=== PATIENT | male | born 1990 | race Caucasian/White ===

== ENCOUNTER 2017-11-12 16:04 | Emergency (ER) | payer OTHER ==
--- NOTE | 2017-11-12 18:15 | ED ---
Substance Abuse/Use - HPI Summary HPI Summary: This patient is a 27 year old M presenting to [facility] accompanied by his girlfriend with a concern for etoh withdrawal. Pt states he is a former alcoholic and was sober for 4 months. 4 days ago the patients girlfriend left town and he relapsed, and has been drinking since. He states that every time he attempts to detox he has a seizure and his last drink was 2 hours ago. Pt had a cholecystectomy a few months ago. The patient rates the pain 8/10 in severity. - History Of Current Complaint Chief Complaint: EDDetoxRequest Stated Complaint: DETOX/SI Hx Obtained From: Patient Onset/Duration of Drug/ETOH Abuse: Days Ingestion History: Type/Name Of Drug - etoh Overdose Characteristics: Oral Timing Of Abuse: Recent Cessation For A Period Of Severity Initially: Moderate Severity Currently: Moderate Associated Signs And Symptoms: Negative - fever - Allergies/Home Medications Allergies/Adverse Reactions: Allergies Allergy/AdvReac Type Severity Reaction Status Date / Time No Known Allergies Allergy Verified 11/12/17 18:04 PMH/Surg Hx/FS Hx/Imm Hx Cardiovascular History: Denies: Hx Congenital Heart Disease, Hx Deep Vein Thrombosis, Hx Embolism, Hx Hypotension Respiratory History: Denies: Hx Chronic Obstructive Pulmonary Disease (COPD), Hx Lung Cancer, Hx Pneumonia, Hx Pulmonary Edema Psychiatric History: Reports: Hx Substance Abuse Infectious Disease History: No Infectious Disease History: Denies: Traveled Outside the US in Last 30 Days - Family History Known Family History: Positive: Diabetes Negative: Respiratory Disease, Seizure Disorder - Social History Occupation: Employed Full-time Alcohol Use: Daily Substance Use Type: Reports: None Hx Tobacco Use: Yes Smoking Status (MU): Heavy Every Day Tobacco Smoker Review of Systems Negative: Fever Positive: Other - etoh abuse All Other Systems Reviewed And Are Negative: Yes Physical Exam - Summary Physical Exam Summary: Appearance: Well-appearing, Well-nourished, lying in bed comfortable Skin: Warm, dry, no obvious rash Eyes: sclera anicteric, no conjunctival pallor ENT: mucous membranes moist Neck: deferred Respiratory: No signs of respiratory distress Cardiovascular: Appears well perfused, pulses are nml Abdomen: deferred Musculoskeletal: Moving all 4 extremities without obvious discomfort Neurological: Awake and alert, mentation is normal, speech is fluent and appropriate Psychiatric: affect is normal, does not appear anxious or depressed Triage Information Reviewed: Yes Vital Signs On Initial Exam: Initial Vitals Temp Pulse Resp BP Pulse Ox 98.3 F 80 15 137/74 98 11/12/17 16:21 11/12/17 16:21 11/12/17 16:21 11/12/17 16:21 11/12/17 16:21 Vital Signs Reviewed: Yes Diagnostics - Vital Signs Vital Signs Temp Pulse Resp BP Pulse Ox 11/12/17 16:21 98.3 F 80 15 137/74 98 - Laboratory Result Diagrams: 11/12/17 17:56 11/12/17 17:56 Lab Statement: Any lab studies that have been ordered have been reviewed, and results considered in the medical decision making process. Course/Dx - Course Course Of Treatment: This is a 27-year-old alcoholic male presenting with relapse of his alcoholism after several months of sobriety. He is mainly concerned with the possibility for alcohol withdrawal seizures which he has had before. Certainly this point he is intoxicated with a very high blood alcohol level and is not at particular risk for seizures at present. However given his history it seemed prudent to prescribe a short course of Librium as a seizure prophylaxis over the next few days. He says generally the seizures if they are going to happen happen in the first couple of days after stopping drinking. - Diagnoses Provider Diagnoses: Alcohol intoxication, History of seizures Discharge - Sign-Out/Discharge Documenting (check all that apply): Patient Departure - Discharge Plan Condition: Good Disposition: HOME Prescriptions: chlordiazePOXIDE CAP* [Librium CAP*] 50 mg PO BID #12 cap MDD 100 mg Patient Education Materials: Abuse of Alcohol (ED) Referrals: [facility] [Outside] [facility] [Outside] - Billing Disposition and Condition Condition: GOOD Disposition: Home - Attestation Statements Document Initiated by Scribe: Yes Documenting Scribe: Biju Angeles Provider For Whom Douglas is Documenting (Include Credential): Yovanny Mullen MD Scribe Attestation: Biju Donald scribed for Yovanny Mullen MD on 11/13/17 at 1037. Scribe Documentation Reviewed: Yes Provider Attestation: The documentation as recorded by the Biju wyman accurately reflects the service I personally performed and the decisions made by me, Yovanny Mullen MD
[2017-11-12 18:17] LABS: ABS Basophils 0 10^3/ul (0-0.2); ABS Eosinophils 0.2 10^3/ul (0-0.6); ABS Lymphocytes 2.7 10^3/ul (1.0-4.8); ABS Monocytes 0.3 10^3/ul (0-0.8); ABS Neutrophils 1.7 10^3/ul (1.5-7.7); ABS Nucleated RBC 0 10^3/ul; Eosinophil % 3.2 % (0-6); Hematocrit 44 % (42-52); Hemoglobin 15.4 g/dl (14.0-18.0); Lymphocyte % 56.2 % (25-47); Mean Corpuscular HGB Conc 35 g/dl (31-36); Mean Corpuscular Hemoglobin 31 pg (27-31); Mean Corpuscular Volume 88 fL (80-94); Nucleated Red Blood Cells % 0.2; Platelet Count 283 10^3/ul (150-450); Red Blood Count 4.98 10^6/ul (4.00-5.40); Red Cell Distribution Width 13 % (10.5-15); White Blood Count 4.9 10^3/ul (3.5-10.8)
[2017-11-12] MEDS ORDERED: Nicotine PATCH 21 MG/24 HR* PATCH TRANSDERM ONE (18:26)
[2017-11-12 19:13] VITALS: BP 126/77
== END 2017-11-12 19:13 | disposition home or self-care (01) ==
LOC: ED 16:04
DX: F10.229 Alcohol dependence with intoxication, unspecified (principal); F17.200 Nicotine dependence, unspecified, uncomplicated; G40.909 Epilepsy, unspecified, not intractable, without status epilepticus
CPT/HCPCS: 36415; 80053; 80307; 80320; 85025; 99282; A9270-GY; G0480

== ENCOUNTER 2017-11-13 15:58 | Emergency (ER) | payer OTHER ==
[2017-11-13 16:56] VITALS: BP 137/81
--- NOTE | 2017-11-13 18:09 | UC ---
General HPI - HPI Summary HPI Summary: 27-year-old male presents with his girlfriend for refill of his psychiatric medication. History of bipolar disorder and presently on Seroquel, sertraline, and carbamazepine. He also has a history of ETOH abuse and was seen in the emergency room yesterday for concerns of alcohol withdrawal which he has had seizures in the past with withdrawal. His last drink was yesterday around 2:00 in the afternoon. He was prescribed Librium 50 mg twice a day in the ER. Chart reviewed. I see no documentation of his routine medications in the ER chart. Patient states that the ER was aware of his home meds when the Librium was prescribed. He is not currently having withdrawal symptoms. He states he was given a 2 day emergency supply of his medications by the [facility] on [facility] yesterday. He recently moved to the area in September of this year but has not establish with a primary care provider in that time. - History of Current Complaint Chief Complaint: UCGeneralIllness Stated Complaint: MED REFILL Time Seen by Provider: 11/13/17 17:35 Hx Obtained From: Patient Pain Intensity: 5 - Allergy/Home Medications Allergies/Adverse Reactions: Allergies Allergy/AdvReac Type Severity Reaction Status Date / Time No Known Allergies Allergy Verified 11/12/17 18:04 PMH/Surg Hx/FS Hx/Imm Hx Psychological History: Bipolar Disorder - Surgical History Surgical History: Yes Surgery Procedure, Year, and Place: [facility] 2016. Lymph node removal 2017 - Family History Known Family History: Positive: Diabetes Negative: Respiratory Disease, Seizure Disorder - Social History Lives: With Family Alcohol Use: Occasionally Alcohol Amount: drank yesterday at 2 pm Substance Use Type: Marijuana Substance Use Comment - Amount & Last Used: daily Smoking Status (MU): Heavy Every Day Tobacco Smoker Review of Systems Constitutional: Negative Skin: Negative Respiratory: Negative Cardiovascular: Negative Gastrointestinal: Negative Neurological: Negative Psychological: Negative Is Patient Immunocompromised?: No All Other Systems Reviewed And Are Negative: Yes Physical Exam Triage Information Reviewed: Yes Appearance: Well-Appearing, No Pain Distress, Well-Nourished Vital Signs: Initial Vital Signs Temp 98.4 F 11/13/17 16:45 Pulse 95 11/13/17 16:45 Resp 18 11/13/17 16:45 BP 137/81 11/13/17 16:45 Pulse Ox 99 11/13/17 16:45 Vital Signs Reviewed: Yes Respiratory: Positive: Lungs clear, Normal breath sounds Cardiovascular: Positive: RRR, No Murmur Neurological Exam: Normal Psychological Exam: Normal Skin Exam: Normal Course/Dx - Course Course Of Treatment: 27-year-old male presents for refill of his psychiatric medication. States he moved to the area from [place] in September but has not yet established with a PCP or mental health provider as he did not realize it would be a problem to refill his medications. He was evaluated in the ED yesterday for concerns of ETOH withdrawal and started on Librium 50 mg BID. He states he forgot to ask at that time for refills on his medications and was able to get an emergency 2 day supply from [facility] on [facility]. I reviewed the ED chart and see no indication that they were aware he was on any medications however the patient insists that he provided them with all his medications. I discussed my concerns with the patient that there is a risk of [employer] depression by combining the Librium with his routine medications however the patient feels he has been taking them safely so far and elects to continue on all his medications as he wants to avoid effect of ETOH detox. I have agreed to provide him with another 2 day supply of his medications understanding he is assuming the above risks. I have also given him a referral to the [facility]. He is to call tomorrow and schedule an appointment within the next 2 days for evaluation, medication refill, and assistance with establishing with a primary care provider. Patient verbalizes understanding and agrees with POC. - Differential Dx - Multi-Symptom Provider Diagnoses: Med refill Discharge - Sign-Out/Discharge Documenting (check all that apply): Patient Departure All imaging exams completed and their final reports reviewed: No Studies - Discharge Plan Condition: Stable Disposition: HOME Prescriptions: carBAMazepine ER TAB(*) [Tegretol Xr TAB(*)] 200 mg PO BID #4 tab.xr QUEtiapine TAB* [Seroquel 25 MG TAB*] 25 mg PO DAILY #2 tab Sertraline* [Zoloft*] 50 mg PO DAILY #2 tab Referrals: No Primary Care Phys,NOPCP [Primary Care Provider] - [facility] [Outside] - 2 Days (Call first thing tomorrow morning for appointment.) Additional Instructions: I have sent in a 2 day supply of your medications to the pharmacy. Call the [facility] first thing tomorrow morning to schedule an appointment within the next 2 days. Be aware that there is a chance of the Librium interacting with your other medications and causing severe respiratory depression if you choose to continue using this medication. Do NOT drink any alcohol. Seek immediate medical attention in the emergency room if you are difficult to arouse, have difficulty breathing, or have any seizure activity. - Billing Disposition and Condition Condition: STABLE Disposition: Home
== END 2017-11-13 18:20 | disposition home or self-care (01) ==
LOC: UCEAST 15:58
DX: Z76.0 Encounter for issue of repeat prescription (principal); F31.9 Bipolar disorder, unspecified; F17.200 Nicotine dependence, unspecified, uncomplicated
CPT/HCPCS: 99212; G0463

== ENCOUNTER 2018-04-30 12:49 | Emergency (ER) | payer OTHER ==
--- OUTSIDE RECORDS SUMMARY | 2018-04-30 13:52 | XMS REPORT | Continuity of Care Document ---
:1990 External Reference #:[id number] Author Name Jia Markham Care Team Providers Name Role Phone Ivet Anaya MD Primary Care Physician Unavailable Payers Date Identification Numbers Payment Provider Subscriber Expires: 2017 Policy Number: [id number] [employer] Jean Santana PayID: [id number] [address] [place] [address] Policy Number: [id number] Geha Jean Santana Group Number: [id number] PayID: [id number] [place] [address] Advance Directives Description No Information Available Problems Description No Information Family History Date Family Member(s) Observation Comments Father Hypertension Mother Lymphoma Living-65 Siblings 1 Brother Social History Type Date Description Comments Sex Unknown Marital Status Single Lives With Girlfriend Occupation Gun [employer] ETOH Use Has consumed alcohol in the past Recreational Drug Use Occassional marijuana Tobacco Use Start: Unknown Heavy tobacco smoker 1 ppd since age 16 (more than 10 cigarettes/day) Smoking Status Reviewed: 04/16/18 Heavy tobacco smoker 1 ppd since age 16 (more than 10 cigarettes/day) Exercise Type/Frequency Exercises regularly Allergies, Adverse Reactions, Alerts Description No Known Drug Allergies Medications Medication Date Status Form Strength Qnty SIG Indications Ordering Provider Sertraline HCL Active Tablets 50mg 90tabs 3 by Robles 019 mouth MILIND Knight every day Seroquel Active Tablets 50mg 30tabs One Robles 019 tablet MILIND Knight QHS Propranolol HCL 0 Active Tablets 10mg 30tabs as needed Robles 000 MILIND Knight Carbamazepine 0 Hx Tablets 200mg 30tabs 1 by Rosa Elena 000 - mouth DO Sabina twice a 018 day Seroquel 00/00/0 Hx Tablets 25mg 30tabs take 1 by Robles 000 - mouth at MILIND Knight bedtime 019 Sertraline HCL 0 Hx Tablets 50mg 60tabs 2 by Robles 000 - mouth MILIND Knight every 019 day. Immunizations CPT Code Status Date Vaccine Reaction Lot # [id number] Given 12/30/2017 Tdap - No immediate [id number] Tetanus/Diptheria/Acellular reaction... Pertussis [id number] Given 12/30/2017 Influenza Virus Vaccine, No immediate [id number] Quadrivalent, Split, reaction... Preservative Free Vital Signs Date Vital Result Comment 04/16/2018 4:36pm Height 72 inches 6'0" Weight 203.50 lb Heart Rate 78 /min BP Systolic 129 mmHg BP Diastolic 83 mmHg Body Temperature 98.2 F O2 % BldC Oximetry 97 % BMI (Body Mass Index) 27.6 kg/m2 12/30/2017 8:42am Height 72 inches 6'0" Weight 193.00 lb Heart Rate 72 /min BP Systolic 127 mmHg BP Diastolic 77 mmHg Body Temperature 97.4 F O2 % BldC Oximetry 98 % BMI (Body Mass Index) 26.2 kg/m2 11/15/2017 11:22am Weight 192.00 lb with boots Heart Rate 60 /min BP Systolic 136 mmHg BP Diastolic 86 mmHg BP Systolic Sitting 134 mmHg BP Diastolic Sitting 88 mmHg Respiratory Rate 16 /min Body Temperature 98.2 F Pain Level 0 Results Description No Information Available Procedures Description No Information Available Encounters Type Date Location Provider Dx Diagnosis Office Visit 11/15/2017 [facility] Rosa Elena Muhammad, F34.1 Dysthymic 11:00a [facility] DO disorder F41.1 Generalized anxiety disorder F10.21 Alcohol dependence, in remission Plan of Treatment Future Appointment(s):06/19/2018 4:20 pm - Robles Knight NP at [facility] Internal Medicine [facility]04/16/2018 - Robles Knight NPF10.21 Alcohol dependence, in remissionComments:Continue going to AA. It is important to have a sponsor.Consider going to [facility] or the [facility].F41.1 Generalized anxiety disorderComments:I have sent in the prescription for the 150mg sertraline. Take that daily and let me know if you need to increase. Continue to use the propranolol as needed for panic symptoms.Follow up:6-8 weeks.
[2018-04-30 14:22] LABS: ABS Basophils 0 10^3/ul (0-0.2); ABS Eosinophils 0.2 10^3/ul (0-0.6); ABS Lymphocytes 1.3 10^3/ul (1.0-4.8); ABS Monocytes 0.5 10^3/ul (0-0.8); ABS Neutrophils 5.6 10^3/ul (1.5-7.7); ABS Nucleated RBC 0 10^3/ul; Eosinophil % 2.2 %; Hematocrit 41 % (36-46); Hemoglobin 14.1 g/dL (14.0-18.0); Lymphocyte % 17.4 %; Mean Corpuscular HGB Conc 35 g/dL (31-36); Mean Corpuscular Hemoglobin 32 pg (27-31); Mean Corpuscular Volume 92 fL (80-94); Mean Platelet Volume 7.9 fL (7.4-10.4); Nucleated Red Blood Cells % 0; Platelet Count 191 10^3/uL (150-450); Red Blood Count 4.42 10^6 /uL (4.18-5.48); Red Cell Distribution Width 14 % (10.5-15); White Blood Count 7.6 10^3/uL (3.5-10.8)
--- NOTE | 2018-04-30 14:28 | ED ---
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 The pt has a hx of alcoholism that he usually gets seizures from when he tries to withdraw, so he usually tries to ween himself off of alcohol, which hes about 5 days clean of. He reports hes had about 20 seizures in the last ten years due to this issue. He is not on any medication for seizures. Presently, he feels normal. He reports he takes seroquil, sertraline, metoprolol. Home Medications Medication Instructions Recorded Confirmed Type QUEtiapine TAB* [Seroquel 25 MG 25 mg PO DAILY #2 tab 11/13/17 04/30/18 Rx TAB*] Sertraline* [Zoloft*] 50 mg PO DAILY #2 tab 11/13/17 04/30/18 Rx Propranolol TAB* [Inderal TAB*] 10 mg PO DAILY PRN 04/30/18 04/30/18 History - History of Current Complaint Chief Complaint: EDSeizure Stated Complaint: SEIZURE PER EMS Time Seen by Provider: 04/30/18 13:40 Last Known Well Date: this morning, also presently well Hx Obtained From: Patient Onset/Duration: Sudden Onset, Started hours ago, Resolved Timing: Intermittent Episodes Lasting: - 10 minutes, per witness' story Onset Severity: Moderate Current Severity: None Seizure Severity: Moderate Number of Seizures: 1 Neurological Deficit Location: Generalized Pain Intensity: 3 Pain Scale Used: 0-10 Numeric Character: Other: - grand mal seizure Episode Lasting: Seconds/Minutes - 10 minutes Aggravating: Alcohol/Drug Withdrawal Alleviating: Spontanious Resolution - woke up groggy/weak Associated Signs and Symptoms: Positive: Weakness, Loss of Consciousness, Seizure Related Hx: Seizure - due to alcohol withdrawal - Allergy/Home Medications Allergies/Adverse Reactions: Allergies Allergy/AdvReac Type Severity Reaction Status Date / Time No Known Allergies Allergy Verified 12/04/17 19:59 Home Medications: Home Medications Propranolol TAB* [Inderal TAB*] 10 mg PO DAILY PRN 04/30/18 [History Confirmed 04/30/18] PMH/Surg Hx/FS Hx/Imm Hx Previously Healthy: No Cardiovascular History: Denies: Hx Congenital Heart Disease, Hx Deep Vein Thrombosis, Hx Embolism, Hx Hypotension Respiratory History: Denies: Hx Chronic Obstructive Pulmonary Disease (COPD), Hx Lung Cancer, Hx Pneumonia, Hx Pulmonary Edema Neurological History: Reports: Hx Seizures - due to alcohol withdrawal, "20 in past 10 years" Psychiatric History: Reports: Hx Substance Abuse - Surgical History Surgery Procedure, Year, and Place: [facility] 2017. Lymph node removal 2017 Infectious Disease History: No Infectious Disease History: Denies: Traveled Outside the [place] in Last 30 Days - Family History Known Family History: Positive: Diabetes Negative: Respiratory Disease, Seizure Disorder - Social History Alcohol Use: None Alcohol Amount: 5 days sober, liquer is pt's preference Hx Substance Use: Yes Substance Use Type: Reports: Marijuana Substance Use Comment - Amount & Last Used: daily, hx of other drug use Hx Tobacco Use: Yes Smoking Status (MU): Heavy Every Day Tobacco Smoker Review of Systems Positive: Fatigue Positive: Other - neck tightness Musculoskeletal: Negative - tremors All Other Systems Reviewed And Are Negative: Yes Physical Exam - Summary Physical Exam Summary: Appearance: well-appearing, no pain distress, well-nourished, no tremors Skin: Warm, color reflects adequate perfusion, dry Head: Normal Head/Face inspection, atraumatic Eyes: Conjunctiva clear ENT: Normal inspection Neck: Supple, no nodes, no JVD Respiratory: Lungs clear, normal breath sounds, no respiratory distress Cardio: RRR, No murmur, pulses normal, brisk capillary refill Abdomen: Soft, nontender Bowel sounds: Present Musculoskeletal: Strength Intact/ROM intact, no calf tenderness, no edema. Psychological: Normal Neuro: A&O x3, CN II-XII intact, motor function 5/5, sensation intact, cerebellar normal Triage Information Reviewed: Yes Vital Signs On Initial Exam: Initial Vitals Temp Pulse Resp BP Pulse Ox 99.2 F 70 16 114/76 99 04/30/18 13:00 04/30/18 13:00 04/30/18 13:00 04/30/18 13:00 04/30/18 13:00 Vital Signs Reviewed: Yes Diagnostics - Vital Signs Vital Signs Temp Pulse Resp BP Pulse Ox 04/30/18 13:36 75 95 04/30/18 13:00 99.2 F 70 16 114/76 99 - Laboratory Lab Results: Lab Results 04/30/18 Range/Units 14:12 WBC 7.6 (3.5-10.8) 10^3/uL RBC 4.42 (4.18-5.48) 10^6 /uL Hgb 14.1 (14.0-18.0) g/dL Hct 41 (36-46) % MCV 92 (80-94) fL MCH 32 H (27-31) pg MCHC 35 (31-36) g/dL RDW 14 (10.5-15) % Plt Count 191 (150-450) 10^3/uL MPV 7.9 (7.4-10.4) fL Neut % (Auto) 73.9 % Lymph % (Auto) 17.4 % Sully % (Auto) 6.3 % Eos % (Auto) 2.2 % Baso % (Auto) 0.2 % Absolute Neuts (auto) 5.6 (1.5-7.7) 10^3/ul Absolute Lymphs (auto) 1.3 (1.0-4.8) 10^3/ul Absolute Monos (auto) 0.5 (0-0.8) 10^3/ul Absolute Eos (auto) 0.2 (0-0.6) 10^3/ul Absolute Basos (auto) 0 (0-0.2) 10^3/ul Absolute Nucleated RBC 0 10^3/ul Nucleated RBC % 0 Result Diagrams: 04/30/18 14:12 04/30/18 14:12 Lab Statement: Any lab studies that have been ordered have been reviewed, and results considered in the medical decision making process. - EKG 1431 Cardiac Rate: NL - 62bpm EKG Rhythm: Sinus Rhythm ST Segment: Non-Specific Ectopy: None EKG Comparison: Other - no prior EKG for comparison Summary of EKG Findings: No acute changes. Re-Evaluation - Re-Evaluation 1st re-eval Re-Evaluation Time: 16:31 Change: Improved Comment: Went over discharge instructions with patient. 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 The pt has a hx of alcoholism that he usually gets seizures from when he tries to withdraw, so he usually tries to ween himself off of alcohol, which hes about 5 days clean of. He reports hes had about 20 seizures in the last ten years due to this issue. He presently feels normal. The patient will be discharged home with follow up [place] [facility] and [facility] in 1-2 days. The patient is agreeable with this plan. Dx seizure. - Diagnoses Provider Diagnoses: Seizure Discharge - Sign-Out/Discharge Documenting (check all that apply): Patient Departure - discharge home Patient Received Moderate/Deep Sedation with Procedure: No - Discharge Plan Condition: Stable Disposition: HOME Patient Education Materials: Alcohol Withdrawal (ED) Forms: *Work Release Referrals: [facility] [Outside] - As Soon As Possible [facility] [Outside] - As Soon As Possible Additional Instructions: Follow up with your primary care physician in 1-2 days. Return to the emergency department with any new or worsening symptoms. - Attestation Statements Document Initiated by Scribe: Yes Documenting Scribe: Deborah Gomez Provider For Whom Douglas is Documenting (Include Credential): Dr. Ilda Lockwood MD. Scribe Attestation: Deborah Donald, scribed for Dr. Ilda Lockwood MD. on 04/30/18 at 1631.
[2018-04-30 14:34] LABS: Activated Partial Thrombo Time 26.6 seconds (26.0-36.3); INR 0.86 (0.77-1.02)
[2018-04-30 14:40] LABS: ALT 16 U/L (7-52); AST 34 U/L (13-39); Albumin 4.3 g/dL (3.2-5.2); Albumin/Globulin Ratio 1.8 (1-3); Alkaline Phosphatase 64 U/L (34-104); Anion Gap 4 mmol/L (2-11); BUN/Creatinine Ratio 19.7 (8-20); Blood Urea Nitrogen 14 mg/dL (6-24); CO2 Carbon Dioxide 28 mmol/L (22-32); Calcium 9.2 mg/dL (8.6-10.3); Chloride 101 mmol/L (101-111); Creatine Kinase 375 U/L (10-223); EGFR Non-African American 133.1 (>60); Globulin 2.4 g/dL (2-4); Glucose 96 mg/dL (70-100); Magnesium 2.1 mg/dL (1.9-2.7); Potassium 4.3 mmol/L (3.5-5.0); Sodium 133 mmol/L (135-145); Total Protein 6.7 g/dL (6.4-8.9)
[2018-04-30 14:54] LABS: Urine Appearance Cloudy; Urine Bacteria Absent (Absent); Urine Bilirubin Negative (Negative); Urine Blood 1+ (Negative); Urine Color Yellow; Urine Glucose Negative (Negative); Urine Granular Casts Present (Absent); Urine Ketones Trace (Negative); Urine Nitrite Negative (Negative); Urine Protein Negative (Negative); Urine Red Blood Cell Trace(0-2/hpf) (Absent); Urine Specific Gravity 1.016 (1.010-1.030); Urine Squamous Epithelial Cell Present (Absent); Urine Urobilinogen Negative (Negative); Urine White Blood Cell Trace(0-5/hpf) (Absent)
[2018-04-30 14:56] LABS: Barbiturates Urine Screen None Detected (None Detect); Benzodiazepine Urine Screen None Detected (None Detect); Urine Cannabinoids Screen None Detected (None Detect)
[2018-04-30 15:00] LABS: Alcohol < 10 mg/dL (<10)
[2018-04-30 15:15] LABS: TSH (Thyroid Stimulating Horm) 1.15 mcIU/mL (0.34-5.60)
[2018-04-30 17:03] VITALS: BP 142/73
== END 2018-04-30 17:02 | disposition home or self-care (01) ==
LOC: ED 12:49
DX: R56.9 Unspecified convulsions (principal); R53.1 Weakness; R55 Syncope and collapse; F17.210 Nicotine dependence, cigarettes, uncomplicated; R53.83 Other fatigue
CPT/HCPCS: 36415; 80053; 80307; 80320; 81003; 81015; 82550; 83605; 83735; 84443; 85025; 85610; 85730; 87086; 93005; 99283; G0480

== ENCOUNTER 2018-05-14 22:06 | Emergency (ER) | payer OTHER ==
--- NOTE | 2018-05-14 22:42 | ED ---
Psychiatric Complaint - HPI Summary HPI Summary: This patient is a 27 year old M presenting to ED accompanied by his girlfriend with a chief complaint of SI with a plan all day today. He also admits to drinking all day. He says he doesnt want to hurt himself and that is why he came to the ED today. The patient rates the pain 4/10 in severity. Symptoms aggravated by nothing. Symptoms alleviated by nothing. The patient takes Zoloft and Seroquel and is compliant with his medications. - History Of Current Complaint Chief Complaint: EDSuicidal Time Seen by Provider: 05/14/18 22:22 Hx Obtained From: Patient Onset/Duration: Sudden Onset, Lasting Days - all day today Timing: Days Severity Currently: Mild - 4/10 Aggravating Factor(s): Nothing Alleviating Factor(s): Nothing Related History: Positive For: Prior Psychiatric Issues Has Suicidal: Reports: Thoughts, With A Plan Has Homicidal: Denies: Thoughts - Allergies/Home Medications Allergies/Adverse Reactions: Allergies Allergy/AdvReac Type Severity Reaction Status Date / Time No Known Allergies Allergy Verified 05/14/18 22:48 Home Medications: Home Medications QUEtiapine TAB* [Seroquel 25 MG TAB*] 50 mg PO BEDTIME 05/14/18 [History Confirmed 05/14/18] Sertraline* [Zoloft*] 150 mg PO DAILY 05/14/18 [History Confirmed 05/14/18] PMH/Surg Hx/FS Hx/Imm Hx Endocrine/Hematology History: Denies: Hx Diabetes Cardiovascular History: Denies: Hx Congenital Heart Disease, Hx Deep Vein Thrombosis, Hx Embolism, Hx Hypotension Respiratory History: Denies: Hx Chronic Obstructive Pulmonary Disease (COPD), Hx Lung Cancer, Hx Pneumonia, Hx Pulmonary Edema Neurological History: Reports: Hx Seizures - due to alcohol withdrawal, "20 in past 10 years" Psychiatric History: Reports: Hx Substance Abuse - Surgical History Surgery Procedure, Year, and Place: [facility] 2017. Lymph node removal 2017 Infectious Disease History: No Infectious Disease History: Denies: Traveled Outside the [place] in Last 30 Days - Family History Known Family History: Positive: Diabetes Negative: Respiratory Disease, Seizure Disorder - Social History Alcohol Use: None Alcohol Amount: 5 days sober, liquor is pt's preference Hx Substance Use: Yes Substance Use Type: Reports: Marijuana Substance Use Comment - Amount & Last Used: daily, hx of other drug use Hx Tobacco Use: Yes Smoking Status (MU): Heavy Every Day Tobacco Smoker Review of Systems Positive: Other - patient is intoxicated Psychological: Other - SI with a plan All Other Systems Reviewed And Are Negative: Yes Physical Exam - Summary Physical Exam Summary: VITAL SIGNS: Reviewed. GENERAL: Patient is a well-developed and nourished MALE who is lying comfortable in the stretcher. Patient is not in any acute respiratory distress. The patient seems intoxicated. HEAD AND FACE: No signs of trauma. No ecchymosis, hematomas or skull depressions. No sinus tenderness. EYES: PERRLA, EOMI x 2, No injected conjunctiva, no nystagmus. EARS: Hearing grossly intact. Ear canals and tympanic membranes are within normal limits. MOUTH: Oropharynx within normal limits. NECK: Supple, trachea is midline, no adenopathy, no JVD, no carotid bruit, no c- spine tenderness, neck with full ROM. CHEST: Symmetric, no tenderness at palpation LUNGS: Clear to auscultation bilaterally. No wheezing or crackles. CVS: Regular rate and rhythm, S1 and S2 present, no murmurs or gallops appreciated. ABDOMEN: Soft, non-tender. No signs of distention. No rebound no guarding, and no masses palpated. Bowel sounds are normal. EXTREMITIES: FROM in all major joints, no edema, no cyanosis or clubbing. NEURO: Alert and oriented x 3. No acute neurological deficits. Speech is normal and follows commands. SKIN: Dry and warm PSYCH: Patient is cooperative. Triage Information Reviewed: Yes Vital Signs On Initial Exam: Initial Vitals Temp Pulse Resp BP Pulse Ox 97.5 F 108 20 147/86 95 05/14/18 22:08 05/14/18 22:08 05/14/18 22:08 05/14/18 22:08 05/14/18 22:08 Vital Signs Reviewed: Yes Diagnostics - Vital Signs Vital Signs Temp Pulse Resp BP Pulse Ox 05/14/18 22:08 97.5 F 108 20 147/86 95 - Laboratory Result Diagrams: 05/14/18 22:50 05/14/18 22:50 Lab Statement: Any lab studies that have been ordered have been reviewed, and results considered in the medical decision making process. Course/Dx - Course Assessment/Plan: This patient is a 27 year old M presenting to ED accompanied by his girlfriend with a chief complaint of SI with a plan all day today. This patient will be signed out to Dr. Gama upon shift change, awaiting patient to sober up and be cleared for MHE. - Differential Dx/Clinical Impression Differential Diagnosis/HQI/PQRI: Positive: Depression, Other - alcohol intoxication Provider Diagnosis: Depression, Alcohol intoxication Discharge - Sign-Out/Discharge Documenting (check all that apply): Sign-Out Patient - awaiting patient to sober up for MHE Signing out patient TO: Ahmet Gama Patient Received Moderate/Deep Sedation with Procedure: No - Discharge Plan Condition: Stable Referrals: Robles Knight, DIRECT SUPPORT PROFESSIONAL CAREGIVER [Primary Care Provider] - - Attestation Statements Document Initiated by Scribe: Yes Documenting Scribe: Miguel Rehman Provider For Whom Scribe is Documenting (Include Credential): Marco Stearns MD Scribe Attestation: IMiguel, scribed for Marco Stearns MD on 05/15/18 at 0624. Status of Scribe Document: Ready
[2018-05-14 23:01] LABS: ABS Basophils 0 10^3/ul (0-0.2); ABS Eosinophils 0.2 10^3/ul (0-0.6); ABS Lymphocytes 2.4 10^3/ul (1.0-4.8); ABS Monocytes 0.4 10^3/ul (0-0.8); ABS Neutrophils 1.6 10^3/ul (1.5-7.7); ABS Nucleated RBC 0 10^3/ul; Eosinophil % 5.3 %; Hematocrit 45 % (36-46); Hemoglobin 15.6 g/dL (14.0-18.0); Lymphocyte % 51.8 %; Mean Corpuscular HGB Conc 35 g/dL (31-36); Mean Corpuscular Hemoglobin 32 pg (27-31); Mean Corpuscular Volume 92 fL (80-94); Mean Platelet Volume 7.4 fL (7.4-10.4); Nucleated Red Blood Cells % 0.1; Platelet Count 247 10^3/uL (150-450); Red Blood Count 4.85 10^6 /uL (4.18-5.48); Red Cell Distribution Width 14 % (10.5-15); White Blood Count 4.6 10^3/uL (3.5-10.8)
[2018-05-14 23:19] LABS: ALT 16 U/L (7-52); Albumin 4.3 g/dL (3.2-5.2); Albumin/Globulin Ratio 1.5 (1-3); Alkaline Phosphatase 67 U/L (34-104); BUN/Creatinine Ratio 14.5 (8-20); Blood Urea Nitrogen 12 mg/dL (6-24); CO2 Carbon Dioxide 26 mmol/L (22-32); Calcium 8.9 mg/dL (8.6-10.3); Chloride 99 mmol/L (101-111); EGFR African American 134.5 (>60); EGFR Non-African American 111.1 (>60); Globulin 2.8 g/dL (2-4); Glucose 110 mg/dL (70-100); Sodium 139 mmol/L (135-145); Total Protein 7.1 g/dL (6.4-8.9)
[2018-05-14 23:28] LABS: Acetaminophen < 15 mcg/mL; Alcohol 400 mg/dL (<10); Salicylate < 2.50 mg/dL (<30)
[2018-05-14 23:34] LABS: Anion Gap 14 mmol/L (2-11)
[2018-05-14 23:43] LABS: TSH (Thyroid Stimulating Horm) 1.46 mcIU/mL (0.34-5.60)
--- NOTE | 2018-05-15 07:13 | ED ---
Progress - Progress Note Progress Note: This patient was signed out from Dr. Stearns to Dr. Gama upon shift change, pending sobriety and MHE. The patient has been medically cleared. Per mental health blueprinting machine operator, Dr. Narvaez has cleared the patient for discharge and follow up with [facility]. Re-Evaluation - Re-Evaluation First Eval Re-Evaluation Time: 10:32 Change: Unchanged Comment: Patient is medically cleared. Course/Dx - Course Course Of Treatment: This patient was signed out from Dr. Stearns to Dr. Gama upon shift change, pending sobriety and MHE. The patient has been medically cleared. Per mental health blueprinting machine operator, Dr. Narvaez has cleared the patient for discharge and follow up with [facility]. - Diagnoses Provider Diagnoses: Depression, Alcohol intoxication - Provider Notifications Discussed Care Of Patient With: Abdirahman Narvaez Time Discussed With Above Provider: 12:34 Instructed by Provider To: Other - Per mental health blueprinting machine operator, Dr. Narvaez has cleared the patient for discharge and follow up with [facility]. Discharge - Sign-Out/Discharge Documenting (check all that apply): Patient Departure - DC, Receiving Sign-Out Receiving patient FROM: Marco Stearns Patient Received Moderate/Deep Sedation with Procedure: No - Discharge Plan Condition: Stable Disposition: HOME Patient Education Materials: Abuse of Alcohol (ED), Alcohol Withdrawal (ED) [facility] [Outside] Robles Knight, FUR TRIMMING MACHINE OPERATOR [Primary Care Provider] - - Billing Disposition and Condition Condition: STABLE Disposition: Home - Attestation Statements Document Initiated by Douglas: Yes Documenting Scribe: Jama Alves Provider For Whom Douglas is Documenting (Include Credential): Ahmet Gama MD Scribe Attestation: Jama Donald, scribed for Ahmet Gama MD on 05/15/18 at 1255. Scribe Documentation Reviewed: Yes Provider Attestation: The documentation as recorded by the Jama wyman accurately reflects the service I personally performed and the decisions made by me, Ahmet Gama MD Status of Scribe Document: Viewed
[2018-05-15 08:46] LABS: Urine Appearance Clear; Urine Bilirubin Negative (Negative); Urine Blood Negative (Negative); Urine Color Yellow; Urine Glucose Negative (Negative); Urine Ketones Negative (Negative); Urine Nitrite Negative (Negative); Urine Protein Negative (Negative); Urine Specific Gravity 1.019 (1.010-1.030); Urine Urobilinogen Negative (Negative)
[2018-05-15 09:08] LABS: Barbiturates Urine Screen Presumptive Positive (None Detect); Benzodiazepine Urine Screen Presumptive Positive (None Detect); Urine Cannabinoids Screen Presumptive Positive (None Detect)
[2018-05-15] MEDS ORDERED: Sertraline* 25 MG TAB PO ONE (10:52)
[2018-05-15] MEDS ORDERED: Nicotine Inhaler* 10 MG AMP INH ONE (11:19)
[2018-05-15] MEDS ORDERED: Mouth Piece, Nicotine* 1 EACH CARTRIDGE ONE (11:22)
[2018-05-15 11:33] VITALS: BP 132/81
== END 2018-05-15 13:03 | disposition home or self-care (01) ==
LOC: ED 22:06
DX: F32.9 Major depressive disorder, single episode, unspecified (principal); F10.129 Alcohol abuse with intoxication, unspecified; F17.200 Nicotine dependence, unspecified, uncomplicated
CPT/HCPCS: 36415; 80053; 80307; 80320; 80329; 81003; 84443; 85025; 99284; A9270-GY; G0480

== ENCOUNTER → 2018-05-15 14:27 | Emergency (ER) | payer OTHER ==
--- NOTE | 2018-05-15 15:09 | ED ---
Complex/Multi-Sys Presentation - HPI Summary HPI Summary: A 27 y/o M presents to ED with prescription request for lithium and phenobarb today. Pt was in ED last night for SI and safe ETOH detox, he was discharged this AM and told to go to [facility] for follow up. He went to [facility] and requested anti -seizure medication because he gets sz when he detoxes. However, [facility] would not give him the Rx and told him that pt cannot be seen by a [facility] provider until next week, and thus the ED, should have prescribed him medication to last until he could be seen. His last drink was yesterday prior to his visit yesterday. He has attempted to detox "100s of times." Pt denies any fever, chills, erythema of eyes, sore throat, CP, SOB, cough, abdominal pain, N/V, dysuria, hematuria, myalgia, edema, rash, or dizziness. - History Of Current Complaint Chief Complaint: EDPrescriptionNeeded Time Seen by Provider: 05/15/18 15:06 Hx Obtained From: Patient Onset/Duration: Still Present Timing: Constant - Allergies/Home Medications Allergies/Adverse Reactions: Allergies Allergy/AdvReac Type Severity Reaction Status Date / Time No Known Allergies Allergy Verified 05/15/18 14:56 PMH/Surg Hx/FS Hx/Imm Hx Previously Healthy: No Endocrine/Hematology History: Denies: Hx Diabetes Cardiovascular History: Denies: Hx Congenital Heart Disease, Hx Deep Vein Thrombosis, Hx Embolism, Hx Hypotension Respiratory History: Denies: Hx Chronic Obstructive Pulmonary Disease (COPD), Hx Lung Cancer, Hx Pneumonia, Hx Pulmonary Edema Neurological History: Reports: Hx Seizures - due to alcohol withdrawal, "20 in past 10 years" Psychiatric History: Reports: Hx Substance Abuse Denies: Hx Eating Disorder - Surgical History Surgery Procedure, Year, and Place: [facility] 2017. Lymph node removal 2017 Infectious Disease History: No Infectious Disease History: Denies: Traveled Outside the [place] in Last 30 Days - Family History Known Family History: Positive: Diabetes Negative: Respiratory Disease, Seizure Disorder - Social History Occupation: Unemployed - OTHER Lives: With Family Alcohol Use: Daily Alcohol Amount: daily since valerio Hx Substance Use: Yes Substance Use Type: Reports: Marijuana Substance Use Comment - Amount & Last Used: daily, hx of other drug use Hx Tobacco Use: Yes Smoking Status (MU): Heavy Every Day Tobacco Smoker Review of Systems Negative: Fever, Chills Negative: Erythema Negative: Sore Throat Negative: Chest Pain Negative: Shortness Of Breath, Cough Negative: Abdominal Pain, Vomiting, Nausea Negative: dysuria, hematuria Negative: Myalgia, Edema Negative: Rash Neurological: Other - neg: dizziness All Other Systems Reviewed And Are Negative: Yes Physical Exam - Summary Physical Exam Summary: Constitutional: Well-developed, Well-nourished, Alert. (-) Distressed Skin: Warm, Dry HENT: Normocephalic; Atraumatic Eyes: Conjunctiva normal Neck: Musculoskeletal ROM normal neck. (-) JVD, (-) Stridor, (-) Tracheal deviation Cardio: Rhythm regular, rate normal, Heart sounds normal; Intact distal pulses; The pedal pulses are 2+ and symmetric. Radial pulses are 2+ and symmetric. (-) Murmur Pulmonary/Chest wall: Effort normal. (-) Respiratory distress, (-) Wheezes, (-) Rales Abd: Soft, (-) epigastric tenderness, (-) Distension, (-) Guarding, (-) Rebound Musculoskeletal: (-) Edema Lymph: (-) Cervical adenopathy Neuro: Alert, Oriented x3 Psych: Mood and affect Normal Triage Information Reviewed: Yes Vital Signs On Initial Exam: Initial Vitals Temp Pulse Resp BP Pulse Ox 97.8 F 62 16 146/94 98 05/15/18 14:35 05/15/18 14:35 05/15/18 14:35 05/15/18 14:35 05/15/18 14:35 Vital Signs Reviewed: Yes Diagnostics - Vital Signs Vital Signs Temp Pulse Resp BP Pulse Ox 05/15/18 14:35 97.8 F 62 16 146/94 98 - Laboratory Lab Statement: Any lab studies that have been ordered have been reviewed, and results considered in the medical decision making process. Re-Evaluation - Re-Evaluation 1 Re-Evaluation Time: 16:45 Change: Unchanged Comment: Discussing consult with Dr. Cuevas, and plans for pt to be seen at [facility]. Complex Multi-Symp Course/Dx Course Of Treatment: Pt is a 27 y/o M requesting script for lithium and phenobarb today because he is ETOH detoxing, and says he gets sz when he detoxes. He was seen in [facility] last night for SI and detox, he was discharged earlier today and told to go to [facility] for follow-up. [facility] would not prescribe the anti-sz medications. Chart reviewed, pt saw Dr. Gama yesterday, and per Dr. Gama, pt had no withdrawal and he was concerned with pt continuing to drink , and felt pt was not forthcoming with what clinics he was following up with and inconsistent with his history. Pt will be seen by Mickie Feliciano, substance abuse counselor at [facility] at 1730 today. I will send Rx with knowledge that patient fulfill this appointment. Dr. Cuevas will see him tomorrow in office to continue to care. Pt is showing no current signs of withdrawl, but due to risk of sz and his intention to detox, I do feel prudent to prescribe this 1 day supply. I do not believe patient can harm himself with this small dose. - Diagnoses Provider Diagnoses: Alcoholism - Physician Notifications Discussed Care Of Patient With: Dhaval Cuevas - director of [facility] Time Discussed With Above Provider: 16:10 Instructed by Provider To: Other - Will check availability in office and return call. Consulted again at 1640: Patient can go to [facility] and be seen by Mickie Feliciano at 5:30pm, and Dr. Cuevas will see pt tomorrow in office. Discharge - Sign-Out/Discharge Documenting (check all that apply): Patient Departure - DC Patient Received Moderate/Deep Sedation with Procedure: No - Discharge Plan Condition: Stable Disposition: HOME Prescriptions: chlordiazePOXIDE CAP* [Librium CAP*] 25 mg PO Q8H PRN #4 cap MDD 3 PRN Reason: Withdrawal - Alcohol Patient Education Materials: Alcohol Withdrawal (ED) Referrals: [facility] [Outside] (AT 5:30 PM TODAY, SATURDAY, MAY 15, 2018) Robles Knight, CARD GAME OPERATOR [Primary Care Provider] - 3 Days Additional Instructions: YOU ARE SCHEDULED TO SEE MICKIE FELICIANO SUBSTANCE ABUSE COUNSELOR, AT 5:30PM AT [facility]. And to follow up with Dr. Mickie Cuevas tomorrow at [facility] ([facility] will give you the time for tomorrow's appointment.) Return to the emergency department for changing or worsening symptoms. - Attestation Statements Document Initiated by Scribe: Yes Documenting Scribe: SooYoung VanDeMark Provider For Whom Scribe is Documenting (Include Credential): Dr. Otis Guerin MD Scribe Attestation: I, Alyssa Perez, scribed for Dr. Otis Guerin MD on 05/15/18 at 1652. Status of Scribe Document: Ready
[2018-05-15 17:03] VITALS: BP 126/83
== END | disposition home or self-care (01) ==
LOC: ED 14:27
DX: F10.20 Alcohol dependence, uncomplicated (principal)
CPT/HCPCS: 99282

== ENCOUNTER 2018-08-22 17:25 | Emergency (ER) | payer MEDICAID, OTHER ==
[2018-08-22 17:56] LABS: ABS Eosinophils 0.3 10^3/ul (0-0.6); ABS Lymphocytes 2.6 10^3/ul (1.0-4.8); ABS Monocytes 0.8 10^3/ul (0-0.8); ABS Neutrophils 3.5 10^3/ul (1.5-7.7); Eosinophil % 4.3 %; Hematocrit 43 % (42-52); Hemoglobin 15.2 g/dL (14.0-18.0); Lymphocyte % 36.2 %; Mean Corpuscular HGB Conc 35 g/dL (31-36); Mean Corpuscular Hemoglobin 32 pg (27-31); Mean Corpuscular Volume 90 fL (80-94); Mean Platelet Volume 8.2 fL (7.4-10.4); Nucleated Red Blood Cells % 0.1; Platelet Count 249 10^3/uL (150-450); Red Blood Count 4.81 10^6 /uL (4.18-5.48); Red Cell Distribution Width 13 % (10-15); White Blood Count 7.2 10^3/uL (3.5-10.8)
[2018-08-22 18:05] LABS: INR 0.96 (0.82-1.09)
[2018-08-22 18:17] LABS: Albumin 4.6 g/dL (3.2-5.2); Albumin/Globulin Ratio 1.5 (1-3); BUN/Creatinine Ratio 17.5 (8-20); Calcium 9.5 mg/dL (8.6-10.3); EGFR African American 140.3 (>60); Potassium 3.5 mmol/L (3.5-5.0); Total Bilirubin 0.5 mg/dL (0.2-1.0); Total Protein 7.6 g/dL (6.4-8.9)
--- NOTE | 2018-08-22 20:26 | ED ---
HPI Chest Pain - HPI Summary HPI Summary: 27-year-old male presents with complaints of sudden onset of substernal chest pain just prior to arrival. Describes the pain as sharp and stabbing. Nonradiating. Lasted approximately 10 minutes. States he has been pain-free since that time. Patient does report a significant history of reflux stating that he frequently uses Tums. History of anxiety but denies ever having a panic attack. Denies fever, chills, recent illness, dizziness, lightheadedness , diaphoresis, palpitations, shortness of breath, nausea, or vomiting. - History of Current Complaint Chief Complaint: EDChestPainROMI Time Seen by Provider: 08/22/18 20:01 Hx Obtained From: Patient Pain Intensity: 0 - Allergy/Home Medications Allergies/Adverse Reactions: Allergies Allergy/AdvReac Type Severity Reaction Status Date / Time No Known Allergies Allergy Verified 05/15/18 14:56 PMH/Surg Hx/FS Hx/Imm Hx Previously Healthy: Yes Endocrine/Hematology History: Denies: Hx Diabetes Cardiovascular History: Denies: Hx Congenital Heart Disease, Hx Coronary Artery Disease, Hx Deep Vein Thrombosis, Hx Embolism, Hx Hypercholesterolemia, Hx Hypertension, Hx Myocardial Infarction, Hx Valvular Heart Disease Respiratory History: Denies: Hx Asthma, Hx Chronic Obstructive Pulmonary Disease (COPD), Hx Lung Cancer, Hx Pneumonia, Hx Pulmonary Edema, Hx Pulmonary Embolism GI History: Reports: Hx Gastroesophageal Reflux Disease Denies: Hx Ulcer Neurological History: Reports: Hx Seizures - due to alcohol withdrawal, "20 in past 10 years" Psychiatric History: Reports: Hx Anxiety, Hx Panic Disorder, Hx Substance Abuse Denies: Hx Eating Disorder - Surgical History Surgical History: Yes Surgery Procedure, Year, and Place: [facility] 2017. Lymph node removal 2017 Infectious Disease History: No Infectious Disease History: Denies: Traveled Outside the [place] in Last 30 Days - Family History Known Family History: Positive: Diabetes Negative: Respiratory Disease, Seizure Disorder - Social History Lives: With Family Alcohol Use: Daily Alcohol Amount: daily since Hx Substance Use: Yes Substance Use Type: Reports: Marijuana Substance Use Comment - Amount & Last Used: daily, hx of other drug use Hx Tobacco Use: Yes Smoking Status (MU): Heavy Every Day Tobacco Smoker Review of Systems Negative: Fever, Chills Negative: Sore Throat Positive: Chest Pain. Negative: Palpitations Negative: Shortness Of Breath, Cough Negative: Abdominal Pain, Vomiting, Diarrhea, Nausea Genitourinary: Negative Musculoskeletal: Negative Skin: Negative Neurological: Negative All Other Systems Reviewed And Are Negative: Yes Physical Exam - Summary Physical Exam Summary: GENERAL APPEARANCE: Well developed, well nourished, alert and cooperative, and appears to be in no acute distress. CARDIAC: Normal S1 and S2. No S3, S4 or murmurs. Rhythm is regular. There is no peripheral edema, cyanosis or pallor. Extremities are warm and well perfused. Capillary refill is less than 2 seconds. Peripheral pulses intact. LUNGS: Clear to auscultation without rales, rhonchi, wheezing or diminished breath sounds. ABDOMEN: Positive bowel sounds. Soft, nondistended, nontender. No guarding or rebound. No masses or hepatosplenomegally. MUSKULOSKELETAL: ROM intact to all extremities. No joint erythema or tenderness. Normal muscular development. Normal gait. SKIN: Skin normal color, texture and turgor with no lesions or eruptions. Triage Information Reviewed: Yes Vital Signs On Initial Exam: Initial Vitals Temp Pulse Resp BP Pulse Ox 97.7 F 79 18 121/65 97 08/22/18 17:31 08/22/18 17:31 08/22/18 17:31 08/22/18 17:31 08/22/18 17:31 Vital Signs Reviewed: Yes Diagnostics - Vital Signs Vital Signs Temp Pulse Resp BP Pulse Ox 08/22/18 20:02 73 18 95 08/22/18 19:59 71 15 120/63 94 08/22/18 19:41 97.7 F 73 18 117/71 96 08/22/18 17:31 97.7 F 79 18 121/65 97 - Laboratory Lab Results: Lab Results 08/22/18 08/22/18 08/22/18 Range/Units 17:48 17:48 17:48 WBC 7.2 (3.5-10.8) 10^3/uL RBC 4.81 (4.18-5.48) 10^6 /uL Hgb 15.2 (14.0-18.0) g/dL Hct 43 (42-52) % MCV 90 (80-94) fL MCH 32 H (27-31) pg MCHC 35 (31-36) g/dL RDW 13 (10-15) % Plt Count 249 (150-450) 10^3/uL MPV 8.2 (7.4-10.4) fL Neut % (Auto) 48.2 % Lymph % (Auto) 36.2 % [place] % (Auto) 10.8 % Eos % (Auto) 4.3 % Baso % (Auto) 0.5 % Absolute Neuts (auto) 3.5 (1.5-7.7) 10^3/ul Absolute Lymphs (auto) 2.6 (1.0-4.8) 10^3/ul Absolute Monos (auto) 0.8 (0-0.8) 10^3/ul Absolute Eos (auto) 0.3 (0-0.6) 10^3/ul Absolute Basos (auto) 0.0 (0-0.2) 10^3/ul Absolute Nucleated RBC 0.0 10^3/ul Nucleated RBC % 0.1 INR (Anticoag Therapy) 0.96 (0.82-1.09) Sodium 135 (135-145) mmol/L Potassium 3.5 (3.5-5.0) mmol/L Chloride 102 (101-111) mmol/L Carbon Dioxide 22 (22-32) mmol/L Anion Gap 11 (2-11) mmol/L BUN 14 (6-24) mg/dL Creatinine 0.80 (0.67-1.17) mg/dL Est GFR ( Amer) 140.3 (>60) Est GFR (Non-Af Amer) 116.0 (>60) BUN/Creatinine Ratio 17.5 (8-20) Glucose 97 (70-100) mg/dL Calcium 9.5 (8.6-10.3) mg/dL Total Bilirubin 0.50 (0.2-1.0) mg/dL AST 30 (13-39) U/L ALT 15 (7-52) U/L Alkaline Phosphatase 68 (34-104) U/L Troponin I 0.00 (<0.04) ng/mL Total Protein 7.6 (6.4-8.9) g/dL Albumin 4.6 (3.2-5.2) g/dL Globulin 3.0 (2-4) g/dL Albumin/Globulin Ratio 1.5 (1-3) Result Diagrams: 08/22/18 17:48 08/22/18 17:48 Lab Statement: Any lab studies that have been ordered have been reviewed, and results considered in the medical decision making process. - EKG No standard instances Cardiac Rate: NL - 82 EKG Rhythm: Sinus Rhythm ST Segment: Normal Ectopy: None Chest Pain Course/Dx - Course Course Of Treatment: 27-year-old male presents with complaints of sudden onset of substernal chest pain just prior to arrival. Describes the pain as sharp and stabbing. Nonradiating. Lasted approximately 10 minutes. States he has been pain-free since that time. Patient does report a significant history of reflux stating that he frequently uses Tums. History of anxiety but denies ever having a panic attack. Denies fever, chills, recent illness, dizziness, lightheadedness, diaphoresis, palpitations, shortness of breath, nausea, or vomiting. Afebrile. Vital signs stable. Patient's exam was overall unremarkable. EKG showed a normal sinus rhythm at a rate of 82 without ectopy, ST elevation, or T-wave changes. His lab work was essentially normal including a troponin of 0.00. Patient has a heart score 0. He remained pain free during his entire duration in the emergency room. Discussed all results with the patient. I have very low suspicion that his pain was cardiac in origin and discussed with him that based on his history of reflux I suspect that his pain may the esophageal in origin. He is to follow-up with his primary care provider in 3-5 days. Anticipatory guidance and warning symptoms were reviewed with the patient. Verbalizes understanding and agrees with plan of care. - Chest Pain Differential Diagnosis/HQI/PQRI: Acute HI, ACS, Chest Wall, GI Disease, Pulmonary Embolism - Diagnoses Provider Diagnoses: Acute chest pain Discharge - Sign-Out/Discharge Documenting (check all that apply): Patient Departure Patient Received Moderate/Deep Sedation with Procedure: No - Discharge Plan Condition: Stable Disposition: HOME Patient Education Materials: Chest Pain (ED) Referrals: Robles Knight NP [Primary Care Provider] - 3 Days Additional Instructions: Your EKG and lab work performed in the emergency room today were all normal. I have a very low suspicion that your pain was heart related. With your history of reflux I suspect that this was likely esophageal in origin. Follow-up with your primary care provider in 3-5 days for a recheck of your symptoms. Return to the emergency room if you develop fever greater than 100.5 F, have persistent chest pain, he feels like her heart is racing or skipping beats, become weak or dizzy, have shortness of breath, vomiting, or any worsening of symptoms. - Billing Disposition and Condition Condition: STABLE Disposition: Home
[2018-08-22 20:43] VITALS: BP 121/63
== END 2018-08-22 20:42 | disposition home or self-care (01) ==
LOC: ED 17:25
DX: R07.89 Other chest pain (principal); K21.9 Gastro-esophageal reflux disease without esophagitis; F17.200 Nicotine dependence, unspecified, uncomplicated
CPT/HCPCS: 36415; 80053; 84484; 85025; 85610; 93005; 99283

== ENCOUNTER 2018-11-27 09:27 | Emergency (ER) | payer OTHER ==
[2018-11-27] MEDS ORDERED: Lidocaine 1% MPF ** 5 ML VIAL INJ ONE (10:19)
[2018-11-27] MEDS ORDERED: LORazepam TAB(*) 1 MG PO ONE (10:19)
--- NOTE | 2018-11-27 10:24 | ED ---
Head Injury - HPI Summary HPI Summary: Pt is a 28 y/o M presenting to the ED for a chief complaint of head injury after a seizure on 11/27/18. Pt is present with his girlfriend with whom he lives. Before this episode, pts last seizure was 3-4 months ago. Pt states that during the seizure, he hit the back of the head and sustained a laceration to the penis. Pts girlfriend woke up during the seizure and witnessed the pt in the bathroom with his pants down. Pts girlfriend states the pt was shaking and the seizure lasted approximately 1-2 minutes. Pt does not recall the events surrounding the seizure. Pts girlfriend has witnessed previous episodes of seizure. Pt admits memory loss that is slowly coming back, confusion, and pain with a bump in the back of the head that is non-bleeding. Pt denies changes in vision. Pt has not urinated since the laceration to the penis. Pts girlfriend states that in the past, pt had a laceration and later had a seizure. Pt admits drinking 6 beers about 12 hours ago. Pt states he occasionally drinks more than 6 beers. Pt states that the seizures occur after abstaining from alcohol use and is associated with alcohol withdrawal. Pt was previously in rehab at [facility] and given Librium. Pt s girlfriend reports that pt would take Librium after alcohol use to prevent a possible seizure. Pt expresses that he wants to stop drinking alcohol. Pt admits tobacco and marijuana use, but denies other drug use. Pt has a PMHx of alcohol abuse and elevated liver enzymes. Pt takes medications for insomnia, anxiety, and depression. Pt does not recall his last tetanus vaccination. Pt is currently unemployed. Allergies noted. Medications reviewed. - History Of Current Complaint Chief Complaint: EDHeadInjury Stated Complaint: SEIZURE/HEAD INJ/LAC ON GROIN PER PT Time Seen by Provider: 11/27/18 10:01 Hx Obtained From: Patient, Family/Front Man - Girlfriend Mechanism Of Injury: Unknown - After seizure Onset/Duration: Started Minutes Ago, Traumatic - After seizure, Resolved Onset of Pain: Immediate Severity Currently: Moderate Severity Initially: Moderate Pain Intensity: 6 Pain Scale Used: 0-10 Numeric Location of Head Injury: Occipital Associated Signs And Symptoms: Confusion, Memory Loss, Seizure - Duration of 1- 2 minutes - Allergies/Home Medications Allergies/Adverse Reactions: Allergies Allergy/AdvReac Type Severity Reaction Status Date / Time No Known Allergies Allergy Verified 11/27/18 09:35 PMH/Surg Hx/FS Hx/Imm Hx Previously Healthy: Yes Endocrine/Hematology History: Denies: Hx Diabetes Cardiovascular History: Denies: Hx Congenital Heart Disease, Hx Coronary Artery Disease, Hx Deep Vein Thrombosis, Hx Embolism, Hx Hypercholesterolemia, Hx Hypotension, Hx Hypertension, Hx Myocardial Infarction, Hx Valvular Heart Disease Respiratory History: Denies: Hx Asthma, Hx Chronic Obstructive Pulmonary Disease (COPD), Hx Lung Cancer, Hx Pneumonia, Hx Pulmonary Edema, Hx Pulmonary Embolism GI History: Reports: Hx Gastroesophageal Reflux Disease Denies: Hx Ulcer Neurological History: Reports: Hx Seizures - due to alcohol withdrawal, "20 in past 10 years" Psychiatric History: Reports: Hx Anxiety, Hx Panic Disorder, Hx Substance Abuse - Alcohol Denies: Hx Eating Disorder - Surgical History Surgical History: Yes Surgery Procedure, Year, and Place: lap javi 2016. Lymph node removal 2016 - Immunization History Date of Tetanus Vaccine: needs tdap Immunizations Up to Date: Yes Infectious Disease History: No Infectious Disease History: Denies: Traveled Outside the [place] in Last 30 Days - Family History Known Family History: Positive: Diabetes Negative: Respiratory Disease, Seizure Disorder - Social History Occupation: Unemployed Lives: With Family - Girlfriend Alcohol Use: Daily Alcohol Amount: daily since Hx Substance Use: Yes Substance Use Type: Reports: Marijuana Substance Use Comment - Amount & Last Used: daily, hx of other drug use Hx Tobacco Use: Yes Smoking Status (MU): Heavy Every Day Tobacco Smoker Review of Systems Positive: Other - Negative changes in vision Positive: other - Laceration to the penis Positive: Myalgia - Back of the head due to injury, with a non-bleeding bump Neurological: Other - Positive seizure, confusion, memory loss All Other Systems Reviewed And Are Negative: Yes Physical Exam - Summary Physical Exam Summary: Constitutional: Well-developed, Well-nourished, Alert. (-) Distressed Skin: Warm, Dry HENT: Normocephalic; Atraumatic Eyes: Conjunctiva normal Neck: Musculoskeletal ROM normal neck. (-) JVD, (-) Stridor, (-) Tracheal deviation Cardio: Rhythm regular, rate normal, Heart sounds normal; Intact distal pulses. Radial pulses are 2+ and symmetric. (-) Murmur Pulmonary/Chest wall: Effort normal. (-) Respiratory distress, (-) Wheezes, (-) Rales Abd: Soft. (-) Tenderness, (-) Distension, (-) Guarding, (-) Rebound Musculoskeletal: (-) Edema Lymph: (-) Cervical adenopathy Neuro: Alert, Oriented x3, Strength normal, Cranial nerves II-XII are grossly intact. (-) Dysmetria, (-) Nystagmus, (-) Ataxia by finger to nose testing, (-) Sensory deficit. Psych: Mood and affect Normal Genital: 4 cm laceration to dorsal shaft of penis near the base, no blood at ureteral meatus, laceration is superficial. Triage Information Reviewed: Yes Vital Signs On Initial Exam: Initial Vitals Temp Pulse Resp BP Pulse Ox 97.8 F 93 16 122/88 96 11/27/18 09:28 11/27/18 09:28 11/27/18 09:28 11/27/18 09:28 11/27/18 09:28 Vital Signs Reviewed: Yes - [place] Coma Scale Best Eye Response: 4 - Spontaneous Best Motor Response: 6 - Obeys Commands Best Verbal Response: 5 - Oriented Coma Scale Total: 15 Procedures - Sedation Patient Received Moderate/Deep Sedation with Procedure: No - Laceration/Wound Repair 1 Location: Other - Penis Anesthesia: 1.0%, [place] Number of Sutures: 7 - 10 cc to dorsal penile nerve block, 7 of 5 stiches. Diagnostics - Vital Signs Vital Signs Temp Pulse Resp BP Pulse Ox 11/27/18 09:28 97.8 F 93 16 122/88 96 - Laboratory Result Diagrams: 11/27/18 10:29 11/27/18 10:29 Lab Statement: Any lab studies that have been ordered have been reviewed, and results considered in the medical decision making process. - CT Brain CT CT Interpretation Completed By: Radiologist Summary of CT Findings: Brain CT IMPRESSION: No acute intracranial abnormality. Reviewed by ED physician. Head Injury Course/Dx Course Of Treatment: Patient is here with an alcohol withdrawal seizure. Patient has these periodically. Patient's seizure was witnessed by girlfriend he says it was tonic-clonic in nature. Upon arrival here, patient was back to his baseline. Patient did sustain a penile laceration during the seizure so a dorsal penile block was performed and his penis was successfully repaired. Patient had a CT head which was negative. Patient had blood work performed which showed elevated LFTs and hyponatremic consistent with his alcohol abuse. Patient has used multiple detox facilities in the past with no success. Patient has been given Librium in the past but he ended up abusing it. [facility] and was encouraged to follow up there for further detox referral - Diagnoses Provider Diagnoses: Laceration of penis, Seizure, Alcohol withdrawal, Hyponatremia Discharge ED - Sign-Out/Discharge Documenting (check all that apply): Patient Departure - Discharge Plan Condition: Stable Disposition: HOME Patient Education Materials: Alcohol Withdrawal (ED) Referrals: Robles Knight M[facility] LAMINATOR [Primary Care Provider] - Additional Instructions: Follow up with [facility] to help with alcohol addiction. No sexual activity for 2 weeks, including masturbation. Return to the ED or your primary care physician in 10-14 days to get your stiches removed. Return immediately if you have penile swelling, redness, or pus. - Billing Disposition and Condition Condition: STABLE Disposition: Home - Attestation Statements Document Initiated by Scribe: Yes Documenting Scribe: Katlin Wang Provider For Whom Scribe is Documenting (Include Credential): Baldo Rm MD Scribe Attestation: I, Katlin Wang, scribed for Baldo Rm MD on 11/27/18 at 2022. Scribe Documentation Reviewed: Yes Provider Attestation: The documentation as recorded by the Katlin wyman accurately reflects the service I personally performed and the decisions made by me, Baldo Rm MD Status of Scribe Document: Viewed
[2018-11-27 10:36] LABS: Hematocrit 40 % (42-52); Hemoglobin 14.3 g/dL (14.0-18.0); Mean Corpuscular HGB Conc 36 g/dL (31-36); Mean Corpuscular Hemoglobin 33 pg (27-31); Mean Corpuscular Volume 93 fL (80-94); Mean Platelet Volume 8.2 fL (7.4-10.4); Platelet Count 100 10^3/uL (150-450); Red Cell Distribution Width 15 % (10-15); White Blood Count 3.8 10^3/uL (3.5-10.8)
[2018-11-27 10:37] LABS: ABS Basophils 0.1 10^3/ul (0-0.2); ABS Eosinophils 0.1 10^3/ul (0-0.6); ABS Lymphocytes 1.1 10^3/ul (1.0-4.8); ABS Monocytes 0.3 10^3/ul (0-0.8); ABS Neutrophils 2.3 10^3/ul (1.5-7.7); Eosinophil % 1.6 %; Lymphocyte % 28.5 %; Nucleated Red Blood Cells % 0.2
[2018-11-27 11:29] LABS: Alcohol < 10 mg/dL (<10)
[2018-11-27 11:30] LABS: Albumin 3.6 g/dL (3.2-5.2); CO2 Carbon Dioxide 16 mmol/L (22-32); Calcium 8.6 mg/dL (8.6-10.3); Chloride 95 mmol/L (101-111); Sodium 126 mmol/L (135-145)
[2018-11-27 11:31] LABS: ALT 67 U/L (7-52); Anion Gap 15 mmol/L (2-11)
[2018-11-27 11:38] LABS: Albumin/Globulin Ratio 1.2 (1-3); Alkaline Phosphatase 112 U/L (34-104); Blood Urea Nitrogen 10 mg/dL (6-24); EGFR African American 107.7 (>60); Globulin 2.9 g/dL (2-4); Glucose 51 mg/dL (70-100); Total Protein 6.5 g/dL (6.4-8.9)
[2018-11-27 12:13] VITALS: BP 121/87
== END 2018-11-27 12:13 | disposition home or self-care (01) ==
LOC: ED 09:27
DX: S31.21XA Laceration without foreign body of penis, initial encounter (principal); S09.90XA Unspecified injury of head, initial encounter; W18.30XA Fall on same level, unspecified, initial encounter; Y92.002 Bathroom of unspecified non-institutional (private) residence as the place of occurrence of the external cause; G40.509 Epileptic seizures related to external causes, not intractable, without status epilepticus; F10.239 Alcohol dependence with withdrawal, unspecified; E87.1 Hypo-osmolality and hyponatremia; F17.200 Nicotine dependence, unspecified, uncomplicated
CPT/HCPCS: 12002; 36415; 70450; 80053; 80320; 85025; 99282; A9270-GY; G0480